=== PATIENT | female | born 1980 | race Two or more races ===

== ENCOUNTER 2020-04-07 08:31 | Outpatient (CLI) | payer OTHER ==
--- NOTE | 2020-04-07 10:44 | XRAY Report ---
PROCEDURE: Shoulder 2 View RT INDICATIONS: RT SHOULDER PAIN TECHNIQUE: 2 views of the shoulder were acquired. COMPARISON: None. FINDINGS: Bones: No fractures or dislocations. No suspicious bony lesions. Visualized ribs appear intact. Soft tissues: No suspicious soft tissue calcifications. IMPRESSION: Normal 2 view right shoulder. Reviewed by: Lakeshia Yuan MD on 04/07/2020 10:43 AM [facility] Approved by: Lakeshia Yuan MD on 04/07/2020 10:43 AM [facility] Station ID: [id number]
== END 2020-04-07 08:32 | disposition home or self-care (01) ==
LOC: DI.N 08:31
PROVIDERS: ATTEND Family Medicine
DX: M25.511 Pain in right shoulder (principal)